=== PATIENT | female | born 1960 | race Caucasian/White ===

== ENCOUNTER 2019-01-31 08:55 | Day surgery (SDC) | payer MEDICARE, MEDICAID ==
[2019-01-31] MEDS ORDERED: Labetalol 100 MG/20 ML MDV IV ONE (08:56)
[2019-01-31] MEDS ORDERED: Midazolam 1 MG/ML 2 ML SDV IV ONE (08:56)
[2019-01-31] MEDS ORDERED: Lactated Ringers 1,000 ML IV SCH (09:00)
[2019-01-31] MEDS ORDERED: Sodium Chloride 0.9% 10 ML Syringe FLUSH PRN (09:00)
--- NOTE | 2019-02-01 08:09 | OR ---
DATE OF OPERATION: 01/31/2019 SURGEON: Madison Tobar MD PREOPERATIVE DIAGNOSIS: Visually significant cataract, left eye. POSTOPERATIVE DIAGNOSIS: Visually significant cataract, left eye. PROCEDURES PERFORMED: Phacoemulsification with intraocular lens placement, left eye. ASSISTANTS: None. ANESTHESIA: Local with sedation. COMPLICATIONS: None. BLOOD LOSS: None. IMPLANTS: Jose [id number] 24.0 diopter lens, serial number [id number], implanted. CDE: 0.26. DESCRIPTION OF PROCEDURE: After risks and benefits were reviewed with the patient, consent was obtained in the preoperative area, and the operative eye was marked with a surgical pen. In the preoperative area, 1% cyclopentolate and 10% phenylephrine were used to dilate the pupil due to allergies. The patient was taken to the operating room, where a time-out was performed, and the patient was placed under monitored anesthesia care. Topical tetracaine was used for anesthesia. The operative eye was prepped and draped for ophthalmic surgery, and the microscope was brought into position and focussed. A paracentesis incision was made, followed by injection of preservative-free 1% lidocaine into the anterior chamber, followed by injection of Viscoat into the anterior chamber. A microkeratome blade was used to make a corneal limbal incision temporarily. A cystotome was used to make the beginning of the capsulorrhexis, which was carried around 360 degrees in a curvilinear fashion using Utrata forceps. A De [place]a cannula with BSS was used to hydrodissect and hydrodelineate the nucleus. The nucleus was removed in a divide and conquer manner using phacoemulsification. Irrigation and aspiration were used to remove the remaining cortical material. Provisc was used to inflate the capsular bag, and a pre-loaded Jose [id number] 24.0 diopter lens, serial number [id number], was injected into the capsular bag. A Sinskey hook was used to position and center the lens. Next, irrigation and aspiration was used to remove any remaining viscoelastic and cortical material from the anterior chamber. BSS on a cannula was used to inflate the anterior chamber and hydrate the wound. The wound was checked and found to be watertight. No Moxifloxacin was used due to allergies. Drapes were removed and the eye was cleaned. A drop of brimonidine 0.15% and a drop of TobraDex was placed. The eye was shielded, and the patient was taken to the recovery room in stable condition. /[id number] CHANCE/BRIDGETT CC: SHIKHA LEARY NP MTDD
== END 2019-01-31 12:20 | disposition home or self-care (01) ==
LOC: FB.SDS 08:55
PROVIDERS: ATTEND Ophthalmology
DX: E11.36 Type 2 diabetes mellitus with diabetic cataract (principal); H02.886 Meibomian gland dysfunction of left eye, unspecified eyelid; H02.883 Meibomian gland dysfunction of right eye, unspecified eyelid; L71.0 Perioral dermatitis; K21.9 Gastro-esophageal reflux disease without esophagitis; I10 Essential (primary) hypertension; E78.5 Hyperlipidemia, unspecified; Z79.899 Other long term (current) drug therapy; Z79.84 Long term (current) use of oral hypoglycemic drugs; Z79.82 Long term (current) use of aspirin; Z88.0 Allergy status to penicillin; Z88.1 Allergy status to other antibiotic agents; Z88.2 Allergy status to sulfonamides; Z88.8 Allergy status to other drugs, medicaments and biological substances
CPT/HCPCS: 00142-QZ; 82962; J2250; J3490; J7120; V2632

== ENCOUNTER 2019-02-28 07:09 | Day surgery (SDC) | payer MEDICARE, MEDICAID ==
[2019-02-28] MEDS ORDERED: fentaNYL 100 MCG/2 ML SDV IV ONE (07:10)
[2019-02-28] MEDS ORDERED: Midazolam 1 MG/ML 2 ML SDV IV ONE (07:10)
[2019-02-28] MEDS ORDERED: Lactated Ringers 1,000 ML IV SCH (07:15)
[2019-02-28] MEDS ORDERED: Sodium Chloride 0.9% 10 ML Syringe FLUSH PRN (07:15)
--- NOTE | 2019-02-28 16:01 | OR ---
DATE OF OPERATION: 02/28/2019 SURGEON: Madison Tobar MD PREOPERATIVE DIAGNOSIS: Visually significant cataract, right eye. POSTOPERATIVE DIAGNOSIS: Visually significant cataract, right eye. PROCEDURES PERFORMED: Phacoemulsification with intraocular lens placement, right eye. ASSISTANTS: None. ANESTHESIA: Local with sedation. COMPLICATIONS: None. BLOOD LOSS: None. IMPLANTS: Jose AU00T0 24.0 diopter lens, serial number [id number], implanted. CDE: DESCRIPTION OF PROCEDURE: After risks and benefits were reviewed with the patient, consent was obtained in the preoperative area, and the operative eye was marked with a surgical pen. In the preoperative area, a pledget was used to dilate the pupil consisting of a mixture of phenylephrine 10%, cyclopentolate 2%, moxifloxacin 0.5%, and bupivacaine 0.75%. The patient was taken to the operating room, where a time-out was performed, and the patient was placed under monitored anesthesia care. Topical tetracaine was used for anesthesia. The operative eye was prepped and draped for ophthalmic surgery, and the microscope was brought into position and focussed. A paracentesis incision was made, followed by injection of preservative-free 1% lidocaine into the anterior chamber, followed by injection of Viscoat into the anterior chamber. A microkeratome blade was used to make a corneal limbal incision temporarily. A cystotome was used to make the beginning of the capsulorrhexis, which was carried around 360 degrees in a curvilinear fashion using Utrata forceps. A De Anda cannula with BSS was used to hydrodissect and hydrodelineate the nucleus. The nucleus was removed in a divide and conquer manner using phacoemulsification. Irrigation and aspiration were used to remove the remaining cortical material. Provisc was used to inflate the capsular bag, and a pre-loaded AU00T0 24.0 diopter lens, serial number [id number] was injected into the capsular bag. A Sinskey hook was used to position and center the lens. Next, irrigation and aspiration was used to remove any remaining viscoelastic and cortical material from the anterior chamber. BSS on a cannula was used to inflate the anterior chamber and hydrate the wound. The wound was checked and found to be watertight. Drapes were removed and the eye was cleaned. A drop of brimonidine 0.15% and a drop of TobraDex was placed. The eye was shielded, and the patient was taken to the recovery room in stable condition. /[id number] CHANCE/BRIDGETT CC: SHIKHA LEARY, [employer] THRESHING MACHINE OPERATOR [facility]
== END 2019-02-28 10:29 | disposition home or self-care (01) ==
LOC: FB.SDS 07:09
PROVIDERS: ATTEND Ophthalmology
DX: E11.36 Type 2 diabetes mellitus with diabetic cataract (principal); K21.9 Gastro-esophageal reflux disease without esophagitis; I10 Essential (primary) hypertension; E78.5 Hyperlipidemia, unspecified; J45.30 Mild persistent asthma, uncomplicated; Z88.0 Allergy status to penicillin; Z88.2 Allergy status to sulfonamides; Z88.1 Allergy status to other antibiotic agents; Z88.8 Allergy status to other drugs, medicaments and biological substances; Z79.899 Other long term (current) drug therapy; Z79.84 Long term (current) use of oral hypoglycemic drugs; Z79.82 Long term (current) use of aspirin
CPT/HCPCS: 00142; 66984; 82962; J2250; J3010; J7120; V2632

== ENCOUNTER 2021-01-26 02:49 | Emergency (ER) | payer MEDICARE, MEDICAID ==
[2021-01-26] MEDS ORDERED: Codeine/guaiFENesin 10-100 MG/5 ML Syrup 5 ML Cup PO ONE ×2 (03:07→05:11)
--- NOTE | 2021-01-26 03:09 | EDM.PDOC ---
ED HPI GENERAL MEDICAL PROBLEM - General Chief Complaint: Respiratory Problem Stated Complaint: COUGH? Time Seen by Provider: 01/26/21 02:55 Source of Information: Reports: Patient - History of Present Illness INITIAL COMMENTS - FREE TEXT/NARRATIVE: 60-year-old lady with a past medical history significant for cerebral palsy and interstitial lung disease came to the emergency department due to a 4-day hi story of cough and a home O2 saturation of 82%. She states that she tried to take a nebulizer treatment at home but it did not seem to help. She has had these problems in the past and has had to be treated with oral steroids. Has no known sick contacts. She is not vaccinated for COVID-19. - Related Data Allergies Allergy/AdvReac Type Severity Reaction Status Date / Time ciprofloxacin Allergy Anaphylactic Verified 02/28/19 07:32 Shock doxycycline Allergy Rash Verified 02/28/19 07:32 Iodinated Contrast Media Allergy Hives Verified 01/26/21 07:20 Penicillins Allergy Anaphylactic Verified 02/28/19 07:32 Shock Sulfa (Sulfonamide Allergy Anaphylactic Verified 02/28/19 07:32 Antibiotics) Shock lisinopril AdvReac Cough Verified 02/28/19 07:32 Home Meds: Home Meds Ascorbate Calcium [Vitamin C] 1,000 mg PO DAILY 01/30/19 [History] Aspirin [Halfprin] 81 mg PO DAILY 01/30/19 [History] Cetirizine [ZyrTEC] 5 mg PO DAILY 01/30/19 [History] Cholecalciferol (Vitamin D3) [D-2000] 2,000 unit PO DAILY 01/30/19 [History] Cinnamon Bark [Cinnamon] 1,000 mg PO BID 01/30/19 [History] Cranberry 500 mg PO BID 01/30/19 [History] Cyanocobalamin (Vitamin B-12) [Vitamin B12] 2,500 mcg PO DAILY 01/30/19 [History] Fish Oil/Phenix-3 Fatty Acids [Fish Oil 1,000 MG] 1,000 mg PO DAILY 01/30/19 [History] Formoterol [Perforomist] 20 mcg NEB BID 01/30/19 [History] Ketorolac [Acular 0.5% Ophth Soln] 1 drop OP QID 01/30/19 [History] Loperamide [Imodium] 2 mg PO ASDIRECTED PRN 01/30/19 [History] Metoprolol Succinate [Toprol Xl] 50 mg PO DAILY 01/30/19 [History] Multivitamins/Min/Ca/FA/Iron [Thera-M] 1 each PO DAILY 01/30/19 [History] Pantoprazole Sodium [Protonix] 40 mg PO DAILY 01/30/19 [History] SitaGLIPtin [Januvia] 100 mg PO DAILY 01/30/19 [History] Triamcinolone Acetonide [Kenalog 0.1% Crm] 1 applic TOP TID PRN 01/30/19 [History] atorvaSTATin [Lipitor] 20 mg PO BEDTIME 01/30/19 [History] metFORMIN [Glucophage] 1,000 mg PO 0700 01/30/19 [History] prednisoLONE acetate [Pred Forte 1% Ophth Susp] 1 drop OP ASDIRECTED 01/30/19 [History] metFORMIN [Glucophage] 500 mg PO WITHDINNER 01/26/21 [History] Past Medical History HEENT History: Reports: Cataract, Impaired Vision Cardiovascular History: Reports: High Cholesterol, Hypertension Respiratory History: Reports: Other (See Below) Other Respiratory History: REACTIVE AIRWAY DISEASE, CHRONIC COUGH, HYPOXIA Gastrointestinal History: Reports: GERD, Hiatal Hernia Genitourinary History: Reports: None 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: Reports: None Musculoskeletal History: Reports: None, Other (See Below) Other Musculoskeletal History: PARAPLEGIC Neurological History: Reports: Cerebral Palsy Psychiatric History: Reports: None Endocrine/Metabolic History: Reports: Diabetes, Type II Hematologic History: Reports: None Immunologic History: Reports: None Oncologic (Cancer) History: Reports: None Dermatologic History: Reports: None - Past Surgical History Head Surgeries/Procedures: Reports: None HEENT Surgical History: Reports: Cataract Surgery Cardiovascular Surgical History: Reports: None Female Surgical History: Reports: None Endocrine Surgical History: Reports: None Musculoskeletal Surgical History: Reports: None Oncologic Surgical History: Reports: None Social & Family History - Caffeine Use Caffeine Use: Reports: Tea ED ROS GENERAL - Review of Systems Review Of Systems: See Below Constitutional: Reports: No Symptoms HEENT: Reports: No Symptoms Respiratory: Reports: Cough Cardiovascular: Reports: Other Endocrine: Reports: No Symptoms GI/Abdominal: Reports: No Symptoms : Reports: No Symptoms Musculoskeletal: Reports: Other (History of cerebral palsy, wheelchair bound) Skin: Reports: No Symptoms Neurological: Reports: Other (History of cerebral palsy) Psychiatric: Reports: No Symptoms Hematologic/Lymphatic: Reports: No Symptoms Immunologic: Reports: No Symptoms ED EXAM, GENERAL - Physical Exam Exam: See Below Exam Limited By: No Limitations General Appearance: Alert, Anxious Head: Atraumatic, Normocephalic Neck: Normal Inspection Respiratory/Chest: Other (Patient has significant cough, mild brief expiratory wheezes, crackles) Cardiovascular: Regular Rate, Rhythm, Other (Heart sounds are distant and difficult to auscultate) Peripheral Pulses: 2+: Radial (L), Radial (R) GI/Abdominal: Normal Bowel Sounds Extremities: Pedal Edema Neurological: Alert, Oriented, CN II-XII Intact, Normal Cognition Psychiatric: Anxious Skin Exam: Warm, Dry, Intact Course - Vital Signs Text/Narrative:: Leukocytosis. Chest x-ray suggestive of consolidation right middle lobe. Chest CT shows no specific consolidation with slight improvement when compared with chest CT performed on 09/21/2018. Urinalysis suggestive of urinary tract infection. He has multiple drug allergies. Patient given azithromycin due to cough, wheezing, chest x-ray and nitrofurantoin for urinary tract infection. Consultation with hospitalist from [facility] chest CT prior to transfer. Covid is negative. Last Recorded V/S: Last Vital Signs Temp 37.1 C 01/26/21 03:02 Pulse 134 H 01/26/21 03:02 Resp 28 H 01/26/21 03:02 BP 162/117 H 01/26/21 03:02 Pulse Ox 96 01/26/21 03:02 - Orders/Labs/Meds Orders: Active Orders 24 hr Category Date Time Status CXR [Chest 2V] [CR] Stat Exams 01/26/21 03:03 Taken Chest wo Cont [CT] Stat Exams 01/26/21 05:48 Taken CULTURE BLOOD [BC] Urgent Lab 01/26/21 04:15 Received CULTURE BLOOD [BC] Urgent Lab 01/26/21 04:22 Received CULTURE URINE [RM] Stat Lab 01/26/21 04:48 Received Sodium Chloride 0.9% [Normal Saline] 1,000 ml Med 01/26/21 05:00 Active IV ASDIRECTED Blood Culture x2 Reflex Set [OM.PC] Urgent Oth 01/26/21 03:58 Ordered EKG 12 Lead [EK] Routine Ther 01/26/21 06:40 Ordered Medication Orders Sodium Chloride (Normal Saline) 1,000 mls @ 250 mls/hr IV ASDIRECTED ELIS Last Admin: 01/26/21 05:19 Dose: 250 mls/hr Documented by: CHE Labs: Laboratory Tests 01/26/21 01/26/21 01/26/21 Range/Units 03:15 03:15 04:48 WBC 15.0 H (3.0-10.3) x10-3/uL RBC 4.61 (3.60-5.20) x10(6)uL Hgb 14.4 (11.4-15.5) g/dL Hct 44.3 (34.2-48.2) % MCV 96.2 (76.7-100.5) fL MCH 31.2 (23.9-33.9) pg MCHC 32.4 (31.9-34.8) g/dL RDW 14.4 (12.3-16.5) % Plt Count 209 (151-488) x10(3)uL MPV 8.0 (7.1-12.4) fL Add Manual Diff Yes Neutrophils % (Manual) 81 (46-82) % Band Neutrophils % 2 (0-6) % Lymphocytes % (Manual) 7 L (13-37) % Monocytes % (Manual) 9 (4-12) % Eosinophils % (Manual) 1 (0-5) % Sodium 144 (135-145) mmol/L Potassium 4.1 (3.5-5.3) mmol/L Chloride 103 (100-110) mmol/L Carbon Dioxide 30 (21-32) mmol/L BUN 23 H (7-18) mg/dL Creatinine 0.8 (0.55-1.02) mg/dL Est Cr Clr Drug Dosing TNP Estimated GFR (MDRD) > 60 (>60) BUN/Creatinine Ratio 28.8 H (9-20) Glucose 286 H (80-116) mg/dL Calcium 9.9 (8.6-10.2) mg/dL Total Bilirubin 0.5 (0.1-1.3) mg/dL AST 25 (5-25) IU/L ALT 59 H (12-36) U/L Alkaline Phosphatase 75 (56-112) IU/L Total Protein 7.5 (6.0-8.0) g/dL Albumin 3.9 (3.2-4.6) g/dL Globulin 3.6 g/dL Albumin/Globulin Ratio 1.1 Urine Color Red (YELLOW) Urine Appearance Cloudy (CLEAR) Urine pH 5.0 (5.0-6.5) Ur Specific [place] 1.020 (1.010-1.025) Urine Protein 500 H (NEGATIVE) mg/dL Urine Glucose (UA) >1000 H (NORMAL) mg/dL Urine Ketones 15 H (NEGATIVE) mg/dL Urine Occult Blood Large H (NEGATIVE) Urine Nitrite Positive H (NEGATIVE) Urine Bilirubin Negative (NEGATIVE) Urine Urobilinogen 1 H (NEGATIVE) mg/dL Ur Leukocyte Esterase Large H (NEGATIVE) Urine RBC >100 H (0-5) Urine WBC 10-20 H (0-5) Ur Squamous Epith Cells Moderate H (NS,R,O) Urine Bacteria Moderate H (NS) SARS-CoV-2 RNA (SONDRA) (NEGATIVE) 01/26/21 Range/Units 05:00 WBC (3.0-10.3) x10-3/uL RBC (3.60-5.20) x10(6)uL Hgb (11.4-15.5) g/dL Hct (34.2-48.2) % MCV (76.7-100.5) fL MCH (23.9-33.9) pg MCHC (31.9-34.8) g/dL RDW (12.3-16.5) % Plt Count (151-488) x10(3)uL MPV (7.1-12.4) fL Add Manual Diff Neutrophils % (Manual) (46-82) % Band Neutrophils % (0-6) % Lymphocytes % (Manual) (13-37) % Monocytes % (Manual) (4-12) % Eosinophils % (Manual) (0-5) % Sodium (135-145) mmol/L Potassium (3.5-5.3) mmol/L Chloride (100-110) mmol/L Carbon Dioxide (21-32) mmol/L BUN (7-18) mg/dL Creatinine (0.55-1.02) mg/dL Est Cr Clr Drug Dosing Estimated GFR (MDRD) (>60) BUN/Creatinine Ratio (9-20) Glucose (80-116) mg/dL Calcium (8.6-10.2) mg/dL Total Bilirubin (0.1-1.3) mg/dL AST (5-25) IU/L ALT (12-36) U/L Alkaline Phosphatase (56-112) IU/L Total Protein (6.0-8.0) g/dL Albumin (3.2-4.6) g/dL Globulin g/dL Albumin/Globulin Ratio Urine Color (YELLOW) Urine Appearance (CLEAR) Urine pH (5.0-6.5) Ur Specific [place] (1.010-1.025) Urine Protein (NEGATIVE) mg/dL Urine Glucose (UA) (NORMAL) mg/dL Urine Ketones (NEGATIVE) mg/dL Urine Occult Blood (NEGATIVE) Urine Nitrite (NEGATIVE) Urine Bilirubin (NEGATIVE) Urine Urobilinogen (NEGATIVE) mg/dL Ur Leukocyte Esterase (NEGATIVE) Urine RBC (0-5) Urine WBC (0-5) Ur Squamous Epith Cells (NS,R,O) Urine Bacteria (NS) SARS-CoV-2 RNA (SONDRA) Negative (NEGATIVE) Meds: Medications Generic Name Dose Route Start Last Admin Trade Name Frejohny PRN Reason Stop Dose Admin Sodium Chloride 1,000 mls @ 250 mls/hr 01/26/21 05:00 01/26/21 05:19 Normal Saline IV 250 mls/hr ASDIRECTED ELIS Administration Discontinued Medications Generic Name Dose Route Start Last Admin Trade Name Maya PRN Reason Stop Dose Admin Guaifenesin/Codeine Phosphate 5 ml 01/26/21 03:07 01/26/21 03:15 Codeine/Guaifenesin 10-100 Mg/5 Ml Syrup 5 Ml Cup PO 01/26/21 03:08 5 ml ONETIME ONE Administration Guaifenesin/Codeine Phosphate 5 ml 01/26/21 05:11 01/26/21 05:19 Codeine/Guaifenesin 10-100 Mg/5 Ml Syrup 5 Ml Cup PO 01/26/21 05:12 5 ml ONETIME ONE Administration Azithromycin 500 mg/ Sodium 250 mls @ 250 mls/hr 01/26/21 04:57 01/26/21 05:19 Chloride IV 01/26/21 05:56 250 mls/hr ONETIME ONE Administration Iopamidol 100 ml 01/26/21 06:05 01/26/21 06:18 Iopamidol 755 Mg/Ml 100 Ml Bottle IV 01/26/21 06:06 Not Given . DIRECTED ONE Labetalol HCl 10 mg 01/26/21 05:13 01/26/21 05:20 Labetalol 20 Mg/4 Ml Syringe IVPUSH 01/26/21 05:14 10 mg ONETIME ONE Administration Protocol Methylprednisolone Sodium Succinate 60 mg 01/26/21 06:17 01/26/21 07:11 Methylprednisolone Sodium Succinate 40 Mg/1 Ml Sdv IVPUSH 01/26/21 06:18 60 mg ONETIME ONE Administration Nitrofurantoin Macrocrystals 100 mg 01/26/21 06:24 01/26/21 07:11 Nitrofurantoin Monohydrate/Macrocrystalline 100 Mg Cap PO 01/26/21 06:25 100 mg ONETIME ONE Administration Departure - Departure Time of Disposition: 07:52 Disposition: DC/Tfer to [facility] 02 Clinical Impression: Urinary tract infection, Lower respiratory tract infection - Discharge Information *PRESCRIPTION DRUG MONITORING PROGRAM REVIEWED*: Not Applicable *COPY OF PRESCRIPTION DRUG MONITORING REPORT IN PATIENT MAIN: Not Applicable Instructions: Viral Respiratory Infection, [id number], Urinary Tract Infection, Adult, [id number] Forms: ED Department Discharge Sepsis Event Note (ED) - Focused Exam Vital Signs: Vital Signs Temp Pulse Resp BP Pulse Ox 01/26/21 03:02 37.1 C 134 H 28 H 162/117 H 96 - My Orders Last 24 Hours: My Active Orders 01/26/21 03:03 CXR [Chest 2V] [CR] Stat 01/26/21 03:58 Blood Culture x2 Reflex Set [OM.PC] Urgent 01/26/21 04:15 CULTURE BLOOD [BC] Urgent 01/26/21 04:22 CULTURE BLOOD [BC] Urgent 01/26/21 04:48 CULTURE URINE [RM] Stat 01/26/21 05:00 Sodium Chloride 0.9% [Normal Saline] 1,000 ml IV ASDIRECTED 01/26/21 05:48 Chest wo Cont [CT] Stat 01/26/21 06:40 EKG 12 Lead [EK] Routine - Assessment/Plan Last 24 Hours: My Active Orders 01/26/21 03:03 CXR [Chest 2V] [CR] Stat 01/26/21 03:58 Blood Culture x2 Reflex Set [OM.PC] Urgent 01/26/21 04:15 CULTURE BLOOD [BC] Urgent 01/26/21 04:22 CULTURE BLOOD [BC] Urgent 01/26/21 04:48 CULTURE URINE [RM] Stat 01/26/21 05:00 Sodium Chloride 0.9% [Normal Saline] 1,000 ml IV ASDIRECTED 01/26/21 05:48 Chest wo Cont [CT] Stat 01/26/21 06:40 EKG 12 Lead [EK] Routine
[2021-01-26] MEDS ORDERED: Azithromycin 500 MG in Sodium Chloride 0.9% 250 ML IV ONE (04:57)
[2021-01-26] MEDS ORDERED: Sodium Chloride 0.9% 1,000 ML IV SCH (05:00)
[2021-01-26] MEDS ORDERED: Labetalol 20 MG/4 ML Syringe IVPUSH ONE (05:13)
[2021-01-26] MEDS ORDERED: Iopamidol 755 Mg/ML 100 ML Bottle IV ONE (06:05)
[2021-01-26] MEDS ORDERED: methylPREDNISolone Sodium Succinate 40 MG/1 ML SDV IVPUSH ONE (06:17)
[2021-01-26] MEDS ORDERED: Nitrofurantoin Monohydrate/Macrocrystalline 100 MG Cap PO ONE (06:24)
--- NOTE | 2021-01-26 08:04 | PCM.EKG ---
#1 Interpretation EKG Date: 01/26/21 Time: 06:43 EKG Interpretation Comments: Sinus rhythm, rate 134, normal axis, no obvious ST-T segment abnormalities
== END 2021-01-26 11:28 ==
LOC: FB.ED 02:49
DX: J22 Unspecified acute lower respiratory infection (principal); N39.0 Urinary tract infection, site not specified; E11.9 Type 2 diabetes mellitus without complications; K21.9 Gastro-esophageal reflux disease without esophagitis; I10 Essential (primary) hypertension; E78.00 Pure hypercholesterolemia, unspecified; Z86.69 Personal history of other diseases of the nervous system and sense organs; Z88.1 Allergy status to other antibiotic agents; Z91.041 Radiographic dye allergy status; Z88.0 Allergy status to penicillin; Z88.2 Allergy status to sulfonamides; Z88.8 Allergy status to other drugs, medicaments and biological substances; Z79.82 Long term (current) use of aspirin; Z79.84 Long term (current) use of oral hypoglycemic drugs; Z20.822 Contact with and (suspected) exposure to COVID-19; Z79.899 Other long term (current) drug therapy
CPT/HCPCS: 36415; 71046; 71250; 80053; 81001; 85025; 87040; 87086; 93005; 96365; 96375; 99285; A9270; J0456; J2920; J3490; J7030; J7050; U0002

== ENCOUNTER 2021-10-21 13:39 | Inpatient (IN) | payer MEDICARE, MEDICAID ==
[2021-10-21 15:07] LABS: BASE EXCESS VENOUS,POC 3 mmol/L (-2 - 3+); PCO2 VENOUS,POC 52 mmHg (41-51); PH VENOUS,POC 7.37 pH Units (7.32-7.43)
[2021-10-21 15:48] LABS: CORONAVIRUS COVID-19 NAA NEGATIVE (NEGATIVE)
[2021-10-21] MEDS ORDERED: Albuterol/Ipratropium 3.0-0.5 MG/3 ML Neb Soln NEB ONE (16:57)
[2021-10-21] MEDS ORDERED: methylPREDNISolone Sodium Succinate 40 MG/1 ML SDV IVPUSH ONE (16:58)
[2021-10-21] MEDS ORDERED: Furosemide 40 MG/4 ML VIAL IVPUSH ONE (16:59)
[2021-10-21] MEDS ORDERED: Enoxaparin 120 MG/0.8 ML Syringe SUBCUT ONE (17:16)
[2021-10-21] MEDS ORDERED: Docusate Sodium 100 MG Cap PO PRN (20:35)
[2021-10-21] MEDS ORDERED: Ondansetron 4 MG/2 ML SDV IV PRN (20:35)
[2021-10-21] MEDS ORDERED: Furosemide 40 MG/4 ML VIAL IVPUSH SCH (21:00)
[2021-10-21] MEDS ORDERED: Non-Formulary Medication 1 Each (Formoterol [Perforomist] 20 MCG/2 ML Neb) NEB SCH (21:00)
[2021-10-21] MEDS ORDERED: atorvaSTATin 20 MG Tab PO SCH (21:00)
[2021-10-21] MEDS: methylPREDNISolone Sodium Succinate 40 MG/1 ML SDV IVPUSH SCH (22:20)
[2021-10-21] MEDS: Enoxaparin 60 MG/0.6 ML Syringe SUBCUT ONE (22:27)
[2021-10-21] MEDS ORDERED: Glucagon,Human Recombinant 1 MG Vial IM PRN (23:14)
[2021-10-21] MEDS ORDERED: 50% Dextrose in Water 50 ML Syringe IVPUSH PRN (23:14)
[2021-10-21] MEDS ORDERED: Insulin Lispro 100 Unit/ML 3 ML KwikPen SUBCUT ONE (23:20)
[2021-10-21] MEDS: Insulin Lispro 100 Unit/ML 3 ML KwikPen SUBCUT SCH (23:21)
[2021-10-22] MEDS: Enoxaparin 60 MG/0.6 ML Syringe SUBCUT ONE (03:30)
[2021-10-22] MEDS: methylPREDNISolone Sodium Succinate 40 MG/1 ML SDV IVPUSH SCH ×2 (04:23→05:09)
[2021-10-22] MEDS: Sodium Chloride 0.9% 10 ML Syringe FLUSH PRN ×4 (04:23→13:38)
[2021-10-22] MEDS: Pantoprazole 40 MG Tab.CR PO SCH (05:11)
[2021-10-22] MEDS: metFORMIN 500 MG Tab PO SCH ×2 (06:38→17:43)
[2021-10-22] MEDS ORDERED: Pantoprazole 40 MG Tab.CR PO SCH ×2 (07:30→09:00)
[2021-10-22] MEDS ORDERED: Cetirizine 10 MG Tab PO SCH ×3 (09:00→21:00)
[2021-10-22] MEDS ORDERED: Aspirin 81 MG Tab.EC *PTOM PO SCH (09:00)
[2021-10-22] MEDS ORDERED: Metoprolol Succinate 50 MG Tab.ER *PTOM PO SCH (09:00)
[2021-10-22] MEDS ORDERED: Cholecalciferol (Vitamin D3) 25 MCG Tab PO SCH (09:00)
[2021-10-22] MEDS ORDERED: SITAGLIPTIN 100 MG PO SCH (09:00)
[2021-10-22] MEDS ORDERED: Ascorbic Acid 500 MG Tab PO SCH (09:00)
[2021-10-22] MEDS ORDERED: Cyanocobalamin (Vitamin B12) 1,000 MCG Tab PO SCH (09:00)
[2021-10-22] MEDS ORDERED: Enoxaparin 40 MG/0.4 ML Syringe SUBCUT SCH (09:00)
[2021-10-22] MEDS: Furosemide 40 MG/4 ML VIAL IVPUSH SCH ×2 (09:33→13:54)
[2021-10-22] MEDS: Insulin Lispro 100 Unit/ML 3 ML KwikPen SUBCUT SCH ×4 (10:55→22:27)
[2021-10-22] MEDS ORDERED: Albuterol/Ipratropium 3.0-0.5 MG/3 ML Neb Soln *PTOM NEB PRN (11:10)
[2021-10-22] MEDS: Budesonide 0.5 MG/2 ML Neb Susp NEB SCH ×2 (12:48→22:33)
[2021-10-22] MEDS ORDERED: methylPREDNISolone Sodium Succinate 125 MG/2 ML SDV IVPUSH SCH (13:00)
[2021-10-22] MEDS: Fenofibrate Nanocrystallized 145 MG Tab PO SCH (17:43)
[2021-10-22] MEDS ORDERED: Montelukast 10 MG Tab PO SCH (21:00)
[2021-10-22] MEDS: Enoxaparin 40 MG/0.4 ML Syringe SUBCUT SCH (22:29)
[2021-10-23] MEDS: Pantoprazole 40 MG Tab.CR PO SCH (06:38)
[2021-10-23] MEDS: Aspirin 81 MG Tab.EC PO SCH (07:17)
[2021-10-23] MEDS: metFORMIN 500 MG Tab PO SCH ×2 (07:17→17:59)
[2021-10-23] MEDS: Metoprolol Succinate 50 MG Tab.ER PO SCH (07:18)
[2021-10-23] MEDS: Insulin Lispro 100 Unit/ML 3 ML KwikPen SUBCUT SCH ×4 (08:08→22:41)
[2021-10-23] MEDS: Furosemide 40 MG/4 ML VIAL IVPUSH SCH ×2 (08:55→14:56)
[2021-10-23] MEDS ORDERED: atorvaSTATin 40 MG Tab PO SCH (09:00)
[2021-10-23] MEDS: Sodium Chloride 0.9% 10 ML Syringe FLUSH PRN ×2 (09:00→14:55)
[2021-10-23] MEDS: methylPREDNISolone Sodium Succinate 40 MG/1 ML SDV IVPUSH SCH (09:01)
[2021-10-23] MEDS: atorvaSTATin 40 MG Tab PO SCH (09:06)
[2021-10-23] MEDS: Budesonide 0.5 MG/2 ML Neb Susp NEB SCH ×2 (10:37→22:38)
[2021-10-23] MEDS: Fenofibrate Nanocrystallized 145 MG Tab PO SCH (18:01)
[2021-10-23] MEDS: Enoxaparin 40 MG/0.4 ML Syringe SUBCUT SCH (22:00)
[2021-10-24] MEDS: Pantoprazole 40 MG Tab.CR PO SCH (06:56)
[2021-10-24] MEDS: Aspirin 81 MG Tab.EC PO SCH (06:57)
[2021-10-24] MEDS: atorvaSTATin 40 MG Tab PO SCH (06:57)
[2021-10-24] MEDS: Metoprolol Succinate 50 MG Tab.ER PO SCH (06:58)
[2021-10-24] MEDS: Insulin Lispro 100 Unit/ML 3 ML KwikPen SUBCUT SCH ×4 (08:23→22:11)
[2021-10-24] MEDS: metFORMIN 500 MG Tab PO SCH ×2 (08:26→18:21)
[2021-10-24] MEDS: predniSONE 20 MG Tab PO SCH (08:28)
[2021-10-24] MEDS: Sodium Chloride 0.9% 10 ML Syringe FLUSH PRN (08:32)
[2021-10-24] MEDS: Furosemide 40 MG/4 ML VIAL IVPUSH SCH (08:33)
[2021-10-24] MEDS: methylPREDNISolone Sodium Succinate 40 MG/1 ML SDV IVPUSH SCH (08:50)
[2021-10-24] MEDS: Budesonide 0.5 MG/2 ML Neb Susp NEB SCH ×2 (11:51→22:19)
[2021-10-24] MEDS: Potassium Chloride 20 MEQ Tab.ER PO SCH (14:01)
[2021-10-24] MEDS: Furosemide 40 MG Tab PO SCH (14:01)
[2021-10-24] MEDS: Fenofibrate Nanocrystallized 145 MG Tab PO SCH (18:20)
[2021-10-24] MEDS: Enoxaparin 40 MG/0.4 ML Syringe SUBCUT SCH (22:11)
[2021-10-25] MEDS: Pantoprazole 40 MG Tab.CR PO SCH (06:19)
[2021-10-25] MEDS: metFORMIN 500 MG Tab PO SCH (06:19)
[2021-10-25] MEDS: Aspirin 81 MG Tab.EC PO SCH (06:20)
[2021-10-25] MEDS: Metoprolol Succinate 50 MG Tab.ER PO SCH (06:21)
[2021-10-25] MEDS: atorvaSTATin 40 MG Tab PO SCH (06:21)
[2021-10-25] MEDS: Insulin Lispro 100 Unit/ML 3 ML KwikPen SUBCUT SCH ×2 (07:47→12:12)
[2021-10-25] MEDS: Furosemide 40 MG Tab PO SCH (07:47)
[2021-10-25] MEDS: predniSONE 20 MG Tab PO SCH (09:44)
[2021-10-25] MEDS: Potassium Chloride 20 MEQ Tab.ER PO SCH (09:45)
[2021-10-25] MEDS: Budesonide 0.5 MG/2 ML Neb Susp NEB SCH (10:27)
== END 2021-10-25 13:10 | disposition home or self-care (01) | DRG 292 ==
LOC: FB.ED 13:39 → FB.MS 19:59 → OBSVTOIN 10-23 13:50
PROVIDERS: ADMIT Family Medicine; ATTEND Family Medicine
DX: I11.0 Hypertensive heart disease with heart failure (principal); R09.02 Hypoxemia; Z68.41 Body mass index [BMI] 40.0-44.9, adult; E66.2 Morbid (severe) obesity with alveolar hypoventilation; I50.1 Left ventricular failure, unspecified; J84.10 Pulmonary fibrosis, unspecified; Z66 Do not resuscitate; Z51.5 Encounter for palliative care; Z20.822 Contact with and (suspected) exposure to COVID-19; E78.00 Pure hypercholesterolemia, unspecified; K21.9 Gastro-esophageal reflux disease without esophagitis; J45.909 Unspecified asthma, uncomplicated; R79.1 Abnormal coagulation profile; R79.89 Other specified abnormal findings of blood chemistry; H54.7 Unspecified visual loss; K44.9 Diaphragmatic hernia without obstruction or gangrene; G80.8 Other cerebral palsy; Z79.84 Long term (current) use of oral hypoglycemic drugs; R91.8 Other nonspecific abnormal finding of lung field; E11.65 Type 2 diabetes mellitus with hyperglycemia; Z79.4 Long term (current) use of insulin; Z79.82 Long term (current) use of aspirin; Z79.899 Other long term (current) drug therapy; Z88.1 Allergy status to other antibiotic agents; Z88.0 Allergy status to penicillin; Z88.2 Allergy status to sulfonamides; Z88.8 Allergy status to other drugs, medicaments and biological substances; Z98.49 Cataract extraction status, unspecified eye
CPT/HCPCS: 0241U; 36415; 51702; 71250; 80048; 80053; 82947; 83036; 83880; 84484; 85025; 85379; 85610; 86140; 93005; 93010; 94640; 96372; 96374; 96375; 96376; 99223; 99233; 99238; 99284; 99285-25; A9270-GY; G0378; J1650; J1815; J1940; J2920; J3490; J7512; J7620

== ENCOUNTER 2022-06-16 11:43 | Emergency (ER) | payer MEDICARE, MEDICAID ==
[2022-06-16 13:11] LABS: BASE EXCESS VENOUS,POC 9 mmol/L (-2 - 3+); PCO2 VENOUS,POC 40 mmHg (41-51); PH VENOUS,POC 7.52 pH Units (7.32-7.43)
[2022-06-16 13:28] LABS: ESTIMATED GFR 73 mL/min (>60)
== END 2022-06-16 14:10 | disposition home or self-care (01) ==
LOC: FB.ED 11:43
DX: E11.9 Type 2 diabetes mellitus without complications (principal); E78.00 Pure hypercholesterolemia, unspecified; I10 Essential (primary) hypertension; Z88.1 Allergy status to other antibiotic agents; Z91.041 Radiographic dye allergy status; Z88.2 Allergy status to sulfonamides; Z88.0 Allergy status to penicillin; Z79.899 Other long term (current) drug therapy; Z79.82 Long term (current) use of aspirin; Z79.84 Long term (current) use of oral hypoglycemic drugs
CPT/HCPCS: 36415; 71045; 80053; 83880; 84484; 85025; 93005; 99284

== ENCOUNTER 2023-03-03 22:06 | Observation (INO) | payer MEDICARE, MEDICAID ==
[2023-03-03] MEDS ORDERED: Albuterol/Ipratropium 3.0-0.5 MG/3 ML Neb Soln NEB ONE (22:11)
[2023-03-03 22:36] LABS: BLOOD UREA NITROGEN,BUN 15 mg/dL (7-18); BUN/CREATININE RATIO 21.4 (9-20); CALCIUM 10.2 mg/dL (8.6-10.2); CARBON DIOXIDE,CO2 37 mmol/L (21-32); CHLORIDE,CL 101 mmol/L (100-110); CREATININE 0.7 mg/dL (0.55-1.02); ESTIMATED GFR 98 mL/min (>60); GLUCOSE RANDOM 290 mg/dL (80-116); POTASSIUM,K 4.6 mmol/L (3.5-5.3); SODIUM,NA 140 mmol/L (135-145)
[2023-03-03 22:40] LABS: BASOPHILS ABSOLUTE AUTO 0.1 x10-3/uL (0.0-0.1); BASOPHILS PERCENT AUTO 0.6 % (0.2-1.5); EOSINOPHILS ABSOLUTE AUTO 0.1 x10-3/uL (0.0-0.8); EOSINOPHILS PERCENT AUTO 0.9 % (0.6-8.1); HEMATOCRIT 35.3 % (34.2-48.2); HEMOGLOBIN 11.7 g/dL (11.4-15.5); LYMPHOCYTES ABSOLUTE AUTO 1.1 x10-3/uL (1.0-4.4); LYMPHOCYTES PERCENT AUTO 10.4 % (18.4-52.1); MEAN CORPUSCULAR HEMOGLOBIN 31.7 pg (23.9-33.9); MEAN CORPUSCULAR HGB CONC 33.1 g/dL (31.9-34.8); MEAN CORPUSCULAR VOLUME 95.5 fL (76.7-100.5); MEAN PLATELET VOLUME 8.3 fL (7.1-12.4); MONOCYTES ABSOLUTE AUTO 1.2 x10-3/uL (0.3-1.0); MONOCYTES PERCENT AUTO 11.5 % (4.4-15.7); NEUTROPHILS ABSOLUTE AUTO 7.9 x10-3/uL (1.5-6.3); NEUTROPHILS PERCENT AUTO 76.6 % (30.8-76.2); PLATELET COUNT,PLT 267 x10(3)uL (151-488); RED BLOOD CELL COUNT 3.69 x10(6)uL (3.60-5.20); RED CELL DISTRIBUTION WIDTH 15.2 % (12.3-16.5); WHITE BLOOD CELL COUNT,WBC 10.3 x10-3/uL (3.0-10.3)
[2023-03-03] MEDS ORDERED: Furosemide 40 MG/4 ML VIAL IVPUSH ONE (22:40)
[2023-03-03] MEDS ORDERED: Sodium Chloride 0.9% 10 ML Syringe FLUSH PRN (22:40)
[2023-03-03 22:42] LABS: A/G RATIO 0.8; ALANINE AMINOTRANSFERASE,ALT 40 U/L (12-36); ALBUMIN 3.2 g/dL (3.2-4.6); ALKALINE PHOSPHATASE 64 IU/L (56-112); ASPARTATE AMNIOTRANSFERASE,AST 15 IU/L (5-25); BILIRUBIN TOTAL 0.4 mg/dL (0.1-1.3); PROTEIN TOTAL,TP 7.3 g/dL (6.0-8.0)
[2023-03-03] MEDS ORDERED: Acetaminophen 650 MG Supp RECTAL PRN (22:45)
[2023-03-03] MEDS ORDERED: Doxycycline 100 MG in Sodium Chloride 0.9% 100 ML IV ONE (22:45)
[2023-03-03] MEDS ORDERED: methylPREDNISolone Sodium Succinate 125 MG/2 ML SDV IVPUSH ONE (22:45)
[2023-03-03] MEDS ORDERED: Enoxaparin 40 MG/0.4 ML Syringe SUBCUT SCH (22:45)
[2023-03-03 22:49] LABS: TROPONIN I 21.4 pg/mL (4.0-60.3)
[2023-03-03] MEDS ORDERED: Glucagon,Human Recombinant 1 MG Vial IM PRN (22:49)
[2023-03-03] MEDS ORDERED: 50% Dextrose in Water 50 ML Syringe IVPUSH PRN (22:49)
[2023-03-03 23:49] LABS: INFLUENZA A NAA NEGATIVE (NEGATIVE); INFLUENZA B NAA NEGATIVE (NEGATIVE); RESPIRATORY SYNCYTIAL VIR NAA NEGATIVE (NEGATIVE)
[2023-03-03 23:51] LABS: CORONAVIRUS COVID-19 NAA NEGATIVE (NEGATIVE)
[2023-03-04] MEDS: Albuterol/Ipratropium 3.0-0.5 MG/3 ML Neb Soln NEB SCH ×2 (06:38→11:20)
[2023-03-04] MEDS ORDERED: Insulin Lispro 100 Unit/ML 3 ML KwikPen SUBCUT SCH (08:00)
[2023-03-04] MEDS: NOVOLOG INSULIN SUBCUT SCH ×2 (08:29→12:50)
[2023-03-04] MEDS ORDERED: Azithromycin 500 MG in Sodium Chloride 0.9% 250 ML IV ONE (09:53)
[2023-03-04] MEDS ORDERED: Magnesium Oxide 400 MG Tab *PTOM PO SCH (10:00)
[2023-03-04] MEDS ORDERED: metFORMIN 500 MG Tab.ER *PTOM PO SCH ×2 (10:00→18:00)
[2023-03-04] MEDS ORDERED: SITAGLIPTIN 100 MG PO SCH (10:00)
[2023-03-04] MEDS ORDERED: Losartan 25 MG Tab *PTOM PO SCH (10:00)
[2023-03-04] MEDS ORDERED: Pantoprazole 40 MG Tab.CR *PTOM PO SCH (10:00)
[2023-03-04] MEDS ORDERED: GUAIFENESIN 1200 MG PO SCH (10:00)
[2023-03-04] MEDS ORDERED: Metoprolol Succinate 50 MG Tab.ER *PTOM PO SCH (10:00)
[2023-03-04] MEDS ORDERED: Fluticasone NASAL Spray 16 GM Bottle NASBOTH SCH (10:00)
[2023-03-04 10:38] VITALS: BP 159/75
[2023-03-04 11:24] VITALS: PULSE 116
[2023-03-04] MEDS ORDERED: NOVOLOG SUBCUT ONE (12:30)
[2023-03-04] MEDS ORDERED: Montelukast 10 MG Tab *PTOM PO SCH (21:00)
== END 2023-03-04 12:30 | disposition home or self-care (01) ==
LOC: FB.ED 22:06 → FB.MS 23:25
PROVIDERS: ADMIT Family Medicine; ATTEND Student in an Organized Health Care Education/Training Program
DX: J44.1 Chronic obstructive pulmonary disease with (acute) exacerbation (principal); I11.0 Hypertensive heart disease with heart failure; I50.9 Heart failure, unspecified; G82.20 Paraplegia, unspecified; J22 Unspecified acute lower respiratory infection; R79.89 Other specified abnormal findings of blood chemistry; R91.8 Other nonspecific abnormal finding of lung field; G80.9 Cerebral palsy, unspecified; E11.9 Type 2 diabetes mellitus without complications; E78.00 Pure hypercholesterolemia, unspecified; K21.9 Gastro-esophageal reflux disease without esophagitis; E66.01 Morbid (severe) obesity due to excess calories; Z20.822 Contact with and (suspected) exposure to COVID-19; Z79.4 Long term (current) use of insulin; Z88.1 Allergy status to other antibiotic agents; Z88.0 Allergy status to penicillin; Z88.2 Allergy status to sulfonamides; Z88.8 Allergy status to other drugs, medicaments and biological substances; Z91.041 Radiographic dye allergy status; Z79.82 Long term (current) use of aspirin; Z79.84 Long term (current) use of oral hypoglycemic drugs; Z79.899 Other long term (current) drug therapy; Z51.5 Encounter for palliative care; Z99.3 Dependence on wheelchair
CPT/HCPCS: 0241U; 36410; 36415; 71045; 80053; 82947; 83605; 83880; 84484; 85025; 85379; 86140; 94640; 94762; 96365; 96375; 99222; 99238; 99285; A9270-GY; G0378; J0456; J1815; J1940; J2930; J3490; J7050; J7620

== ENCOUNTER 2023-03-09 12:06 | Emergency (ER) | payer MEDICARE, MEDICAID ==
[2023-03-09] MEDS ORDERED: methylPREDNISolone Sodium Succinate 125 MG/2 ML SDV IM ONE (12:29)
[2023-03-09] MEDS ORDERED: Albuterol/Ipratropium 3.0-0.5 MG/3 ML Neb Soln NEB ONE (12:29)
== END 2023-03-09 15:20 | disposition home or self-care (01) ==
LOC: FB.ED 12:06
DX: J44.1 Chronic obstructive pulmonary disease with (acute) exacerbation (principal); E11.9 Type 2 diabetes mellitus without complications; K21.9 Gastro-esophageal reflux disease without esophagitis; E78.00 Pure hypercholesterolemia, unspecified; I10 Essential (primary) hypertension; Z79.82 Long term (current) use of aspirin; Z79.84 Long term (current) use of oral hypoglycemic drugs; Z79.4 Long term (current) use of insulin; Z79.899 Other long term (current) drug therapy; Z88.0 Allergy status to penicillin; Z88.1 Allergy status to other antibiotic agents; Z88.2 Allergy status to sulfonamides; Z88.8 Allergy status to other drugs, medicaments and biological substances; Z91.041 Radiographic dye allergy status
CPT/HCPCS: 71045; 96372; 99285; J2930; J7620

== ENCOUNTER 2024-06-24 11:12 | Emergency (ER) | payer MEDICARE ==
[2024-06-24] MEDS ORDERED: Sodium Chloride 0.9% 10 ML Syringe FLUSH PRN (11:35)
[2024-06-24] MEDS: Albuterol/Ipratropium 3.0-0.5 MG/3 ML Neb Soln NEB ONE (11:51)
[2024-06-24 12:15] LABS: BLOOD UREA NITROGEN,BUN 22 mg/dL (7-18); BUN/CREATININE RATIO 12.2 (9-20); CALCIUM 10.3 mg/dL (8.6-10.2); CARBON DIOXIDE,CO2 28 mmol/L (21-32); CHLORIDE,CL 103 mmol/L (100-110); CREATININE 1.8 mg/dL (0.55-1.02); EST CRCL DRUG DOSING (CG) 22.98 mL/min; ESTIMATED GFR 31 mL/min (>60); GLUCOSE RANDOM 163 mg/dL (80-116); POTASSIUM,K 4.4 mmol/L (3.5-5.3); SODIUM,NA 143 mmol/L (135-145)
[2024-06-24 12:16] LABS: BASOPHILS PERCENT AUTO 0.3 % (0.2-1.5); EOSINOPHILS ABSOLUTE AUTO 0.3 x10-3/uL (0.0-0.8); EOSINOPHILS PERCENT AUTO 3.6 % (0.6-8.1); HEMATOCRIT 28.5 % (34.2-48.2); HEMOGLOBIN 8.7 g/dL (11.4-15.5); LYMPHOCYTES ABSOLUTE AUTO 1.4 x10-3/uL (1.0-4.4); LYMPHOCYTES PERCENT AUTO 17.7 % (18.4-52.1); MEAN CORPUSCULAR HEMOGLOBIN 28.6 pg (23.9-33.9); MEAN CORPUSCULAR HGB CONC 30.7 g/dL (31.9-34.8); MEAN CORPUSCULAR VOLUME 93.1 fL (76.7-100.5); MEAN PLATELET VOLUME 7.6 fL (7.1-12.4); MONOCYTES ABSOLUTE AUTO 0.8 x10-3/uL (0.3-1.0); MONOCYTES PERCENT AUTO 9.9 % (4.4-15.7); NEUTROPHILS ABSOLUTE AUTO 5.3 x10-3/uL (1.5-6.3); NEUTROPHILS PERCENT AUTO 68.5 % (30.8-76.2); PLATELET COUNT,PLT 422 x10(3)uL (151-488); RED BLOOD CELL COUNT 3.06 x10(6)uL (3.60-5.20); RED CELL DISTRIBUTION WIDTH 14.8 % (12.3-16.5); WHITE BLOOD CELL COUNT,WBC 7.8 x10-3/uL (3.0-10.3)
[2024-06-24 12:19] LABS: CORONAVIRUS COVID-19 NAA NEGATIVE (NEGATIVE); INFLUENZA A NAA NEGATIVE (NEGATIVE); INFLUENZA B NAA NEGATIVE (NEGATIVE); RESPIRATORY SYNCYTIAL VIR NAA NEGATIVE (NEGATIVE)
[2024-06-24 12:22] LABS: A/G RATIO 0.6; ALANINE AMINOTRANSFERASE,ALT 44 U/L (12-36); ALBUMIN 2.8 g/dL (3.2-4.6); ALKALINE PHOSPHATASE 86 IU/L (56-112); ASPARTATE AMNIOTRANSFERASE,AST 38 IU/L (5-25); BILIRUBIN TOTAL 0.3 mg/dL (0.1-1.3); MAGNESIUM 1.7 mg/dL (1.8-2.5); PROTEIN TOTAL,TP 7.8 g/dL (6.0-8.0)
[2024-06-24] MEDS: Benzonatate 100 MG Cap PO ONE (12:26)
[2024-06-24 12:31] LABS: C-REACTIVE PROTEIN 5.1 mg/dL (<0.50)
[2024-06-24] MEDS: Codeine/guaiFENesin 10-100 MG/5 ML Syrup 5 ML Cup PO ONE (13:20)
== END 2024-06-24 13:33 | disposition home or self-care (01) ==
LOC: FB.ED 11:12
DX: J20.9 Acute bronchitis, unspecified (principal); D64.9 Anemia, unspecified; I10 Essential (primary) hypertension; E78.00 Pure hypercholesterolemia, unspecified; K21.9 Gastro-esophageal reflux disease without esophagitis; E11.9 Type 2 diabetes mellitus without complications; Z79.899 Other long term (current) drug therapy; Z79.84 Long term (current) use of oral hypoglycemic drugs; Z79.82 Long term (current) use of aspirin; Z88.8 Allergy status to other drugs, medicaments and biological substances; Z88.1 Allergy status to other antibiotic agents; Z88.2 Allergy status to sulfonamides; Z91.041 Radiographic dye allergy status
CPT/HCPCS: 0241U; 36415; 71045; 80053; 83735; 83880; 85025; 86140; 94640; 99285; A9270; J7620